=== PATIENT | male | born 1950 | race Caucasian/White ===

== ENCOUNTER 2025-07-21 17:47 | Observation (INO) | payer MEDICARE, SELFPAY ==
[2025-07-21] VITALS (11 sets, daily range): BP systolic 136–220; BP diastolic 71–115; PULSE 8–86; RESP 15–20; TEMP 36.6–37; O2SAT 92–96
--- OUTSIDE RECORDS SUMMARY | 2025-07-21 17:57 | XMS_ITS | Continuity of Care Document ---
Author Organization Yuridia White, [facility] ([facility]) Address [address] [place] [phone] Assessment No assessment recorded. Plan of Treatment Reminders Order Date Submit Date Provider Last Modified By Organization Details Last Modified Time Details Appointments None recorded. Lab urinalysis , dipstick 2024 025 [email or web address] [facility] ([facility]), [address] [place] [address], [phone], 18:45:25 Referral None recorded. Procedures None recorded. Surgeries None recorded. Imaging None recorded. Medication Orders None recorded. Patient TargetsNo targets recorded. Patient Instructions Encounter Date Encounter Id Patient Instructions Last Modified By Organization Details Last Modified Time 07/18/2025 [id number] Because none of these symptoms were newly happening today, and had been coming on for some time, I recommend establishing a PCP. He had a prior hand and knee injury to left side. Come fasting for blood work. [email or web address] Not available 07/18/2025 13:01:23 Reason for Referral None Reported. Results Created Date Observation Date Name Description Value Unit Range Abnormal Flag Note LastModifiedBy Organization Detail LastModifiedTime 07/18/2007/18/2025 urina lysis , dipst ick Leukocytes Negati ve Not Available [facility] ([facility]) [address] [place] [address], [phone], 07/18/2025 12:17:19 07/18/2007/18/2025 urina lysis , dipst ick Nitrite negati ve Not Available [facility] ([facility]) [address] [place], [address], 07/18/2025 12:17:19 07/18/20 25 07/18/2025 urina lysis , dipst ick Urobilinogen .2 Not Available [facility] ([facility]) [address] [place], [address], 07/18/2025 12:17:19 07/18/20 25 07/18/2025 urina lysis , dipst ick Protein Negati ve Not Available [facility] ([facility]) [address] [place], [address], 07/18/2025 12:17:19 07/18/20 25 07/18/2025 urina lysis , dipst ick pH 6.0 Not Available [facility] ([facility]) [address] [place], [address], 07/18/2025 12:17:19 07/18/20 25 07/18/2025 urina lysis , dipst ick Blood Negati ve Not Available [facility] ([facility]) [address] [place], [address], 07/18/2025 12:17:19 07/18/20 25 07/18/2025 urina lysis , dipst ick Specific [place] 1.010 Not Available [facility] ( [facility]) [address] [place], [address], 07/18/2025 12:17:19 07/18/20 25 07/18/2025 urina lysis , dipst ick Ketone Negati ve Not Available [facility] ([facility]) [address] [place], [address], 07/18/2025 12:17:19 07/18/20 25 07/18/2025 urina lysis , dipst ick Bilirubin Negati ve Not Available [facility] ([facility]) [address] [place], [address], 07/18/2025 12:17:19 07/18/2007/18/2025 urina lysis , dipst ick Glucose Negati ve Not Available [facility] ([facility]) [address] [place], [address], 07/18/2025 12:17:19 07/18/2007/18/2025 urina lysis , dipst ick Appearance Clear Not Available [facility] ([facility]) [address] [place], [address], 07/18/2025 12:17:19 07/18/2007/18/2025 urina lysis , dipst ick Color Yellow Not Available [facility] ([facility]) [address] [place], [address], 07/18/2025 12:17:19 Result Notes None recorded. Medical Equipment None Reported. Allergies No known drug allergies Medications Not known to be on any medication Vitals Date Recorded Body height Body mass index (BMI) Body weight Oxygen saturation Heart rate Body temperature Systolic And Diastolic Provider Name and Address Organization Details Last Updated DateTime 167.64 cm 31.2 kg/m2 24015.3 3 g 98 % 84 /min 98.4 [degF] 136/82 mm[Hg] Harleen Medina [facility] 12:14:12 Social History Question Answer Notes LastModified by Organizat ion Details LastModified Time Tobacco Smoking Status Never Smoker Harleen wheeler [facility] 07/18/2025 12:11:23 What Was The Date Of Your Most Recent Tobacco Screening? 07/18/2025 [email or web address] Information not available 07/18/2025 Sex: Unknown Functional Status None recorded. Mental Status None recorded. Family History Nothing Reported. Medical History No medical history recorded. Past Encounters Encounter ID Performer Location Encounter Start Date Encounter Closed Date Diagnosis/Indication Diagnosis SNOMED-CT Code Diagnosis ICD10 Code Diagnosis IMO Codes Diagnosis Note [id number] EARL UNDERWOOD APRN [facility] ([facility]) [address] [place] [address] 07/18/2025 12:04:19 07/18/2025 13:16:56 Dysuria 48235405 R30.0 27914 Nocturia 440833127 R35.1 23891108 History of hypertension 870323523 Z86.79 950881 Health Concerns Section Related Observation LastModified by Organization Detai ls LastModified Time None Recorded Concern Status LastModified by Organization Details LastModified Time None Recorded Payers Encounter Date Sequence Insurance Name Policy Number Policy Beckford Covered Member ID Beckford Member ID Guarantor Name 07/18/2025 1 [employer] (MEDICARE REPLACEMENT/ ADVANTAGE - PPO) [id number] Jerad Zuniga [id number] Jerad Zuniga Notes Date Note Type Note Provider Name and Address Organization Details Recorded Time 07/18/2025 text/html Walk inHaving trouble controlling bladder, getting to the restroom at times, slurred speech x4 days. Fell asleep 4 days ago & symptoms started.Has overactive bladder, has joint achiness, memory issues coming on for some time. balance is off EARL UNDERWOOD APRN [address] [place], [address], [facility] 07/18/2025 13:01:44
--- OUTSIDE RECORDS SUMMARY | 2025-07-21 17:57 | XMS_ITS | Data Portability ---
Author Organization [place] - [facility] Yuridia Khan [facility] Address [address] [place] [address] Assessment No assessment recorded. Plan of Treatment Reminders Order Date Submit Date Provider Last Modified By Organization Details Last Modified Time Details Appointments None recorded. Lab urinalysis , dipstick 2024 025 [email or web address] [facility] ([facility]), [address] [place] [address], [address], 18:45:25 Referral None recorded. Procedures None recorded. Surgeries None recorded. Imaging None recorded. Medication Orders None recorded. Patient TargetsNo targets recorded. Patient Instructions Encounter Date Encounter Id Patient Instructions Last Modified By Organization Details Last Modified Time 07/18/2025 [id number] Because none of these symptoms were newly [...] dipst ick Leukocytes Negati ve Not Available [facility] ([facility]) [address] [place], [address], 07/18/2025 12:17:19 07/18/2007/18/2025 urina lysis , dipst ick Nitrite negati ve Not Available [facility] ([facility]) [address] [place], [address], 07/18/2025 12:17:19 07/18/20 25 07/18/2025 urina lysis , dipst ick Urobilinogen .2 Not Available [facility] ([facility]) [address] [place], [address], 07/18/2025 12:17:19 07/18/20 25 07/18/2025 urina lysis , dipst ick Protein Negati ve Not Available [facility] ([facility]) [address] [place], [address], 07/18/2025 12:17:19 07/18/20 25 07/18/2025 urina lysis , dipst ick pH 6.0 Not Available [facility] ([facility]) [address] [place], [address], 07/18/2025 12:17:19 07/18/20 25 07/18/2025 urina lysis , dipst ick Blood Negati ve Not Available [facility] ([facility]) [address] [place], [address], 07/18/2025 12:17:19 07/18/20 25 07/18/2025 urina lysis , dipst ick Specific [place] 1.010 Not Available [facility] ( [facility]) [address] [place], [address], 07/18/2025 12:17:19 07/18/20 25 07/18/2025 urina lysis , dipst ick Ketone Negati ve Not Available [facility] ([facility]) [address] [place], [address], 07/18/2025 12:17:19 07/18/20 25 07/18/2025 urina lysis , dipst ick Bilirubin Negati ve Not Available [facility] ([facility]) [address] [place], [address], 07/18/2025 12:17:19 07/18/2007/18/2025 urina lysis , dipst ick Glucose Negati ve Not Available [facility] ([facility]) [address] [place], [address], 07/18/2025 12:17:19 07/18/2007/18/2025 urina lysis , dipst ick Appearance Clear Not Available [facility] ([facility]) [address] [place], [address], 07/18/2025 12:17:19 07/18/2007/18/2025 urina lysis , dipst ick Color Yellow Not Available [facility] ([facility]) [address] [place], [address], 07/18/2025 12:17:19 Result Notes None recorded. Medical Equipment None Reported. Allergies No known drug allergies Medications Not known to be on any medication Vitals Date Recorded Body height Body mass index (BMI) Body weight Oxygen saturation Heart rate Body temperature Systolic And Diastolic Provider Name and Address Organization Details Last Updated DateTime 167.64 cm 31.2 kg/m2 20413.3 3 g 98 % 84 /min 98.4 [degF] 136/82 mm[Hg] Harleen Adam [facility] 12:14:12 Social History Question Answer Notes LastModified by Organizat ion Details LastModified Time Tobacco Smoking Status Never Smoker Harleen Medinanatanael wheeler [facility] 07/18/2025 12:11:23 What Was The [...] ICD10 Code Diagnosis IMO Codes Diagnosis Note [id number] EARL UNDERWOOD APRN [facility] ([facility]) [address] [place] [address] 07/18/2025 12:04:19 07/18/2025 13:16:56 Dysuria 23127439 R30.0 41865 Nocturia 401761066 R35.1 71095128 History of hypertension 666979444 Z86.79 599377 Health Concerns Section Related Observation LastModified by Organization Detai ls LastModified Time None Recorded Concern Status LastModified by Organization Details LastModified Time None Recorded Advance Directives Directive None Recorded Payers Insurance Date Sequence Insurance Name Policy Number Policy Beckford Covered Member ID Beckford Member ID Guarantor Name 07/18/2025 1 [employer] (MEDICARE REPLACEMENT/ ADVANTAGE - PPO) [id number] Jerad Zuniga [id number] Jerad Zuniga Notes Date Note Type Note Provider Name and Address Organization Details Recorded Time 07/18/2025 text/html Walk inHaving trouble controlling bladder, getting to the restroom at times, slurred speech x4 days. Fell asleep 4 days ago & symptoms started.Has overactive bladder, has joint achiness, memory issues coming on for some time. balance is off EARL UNDERWOOD APRN [address] [place], [address], [facility] 07/18/2025 13:01:44
--- NOTE | 2025-07-21 18:01 | CTR_ITS ---
PROCEDURE INFORMATION: Exam: CT Head Without Contrast Exam date and time: 07/21/2025 6:17 PM Age: 74 years old Clinical indication: Syncope and collapse; Right sided facial droop, weakness and slurred speech since Friday; Additional info: R sided weakness TECHNIQUE: Imaging protocol: Computed tomography of the head without contrast. Radiation optimization: All CT scans at this facility use at least one of these dose optimization techniques: automated exposure control; mA and/or kV adjustment per patient size (includes targeted exams where dose is matched to clinical indication); or iterative reconstruction. COMPARISON: No relevant prior studies available. RADIATION DOSE METRICS: Total DLP (mGy-cm): 1046.68 FINDINGS: Brain: Mild atrophic change. No intracranial hemorrhage or hematoma is seen. No mass effect or shift of midline structures identified. No findings to indicate territorial or large vessel ischemic infarct. Suggs-white matter differentiation appears unremarkable. Cerebral ventricles: No ventriculomegaly. Paranasal sinuses: Visualized sinuses are unremarkable. No fluid levels. Mastoid air cells: Visualized mastoid air cells are well aerated. Bones: Bone windows of the skull show no acute abnormality. Soft tissues: Unremarkable. CT/CT head wo con* [id number] IMPRESSION: No acute intracranial abnormality.
--- NOTE | 2025-07-21 18:01 | CTR_ITS ---
PROCEDURE INFORMATION: Exam: CTA Head With Contrast, Arteriography Exam date and time: 07/21/2025 6:20 PM Age: 74 years old Clinical indication: Syncope and collapse; Right sided facial droop, weakness and slurred speech since Friday; Additional info: R sided weakness TECHNIQUE: Imaging protocol: Computed tomographic angiography of the head with contrast. Exam focused on the arteries. 3D rendering (Not supervised by radiologist): MIP and/or 3D reconstructed images were created by the technologist. Radiation optimization: All CT scans at this facility use at least one of these dose optimization techniques: automated exposure control; mA and/or kV adjustment per patient size (includes targeted exams where dose is matched to clinical indication); or iterative reconstruction. Contrast material: OMNIPAQUE 350; Contrast volume: 100 ml; Contrast route: INTRAVENOUS (IV); COMPARISON: CT head wo con* [id number] 07/21/2025 6:17 PM RADIATION DOSE METRICS: Total DLP (mGy-cm): 459.04 FINDINGS: ANTERIOR CIRCULATION: Right internal carotid artery: Intracranial segment is patent with no significant stenosis. No aneurysm. Mild calcification cavernous segment. Right middle cerebral artery: No occlusion or significant stenosis. No aneurysm. Right anterior cerebral artery: No occlusion or significant stenosis. No aneurysm. Left internal carotid artery: Intracranial segment is patent with no significant stenosis. No aneurysm. Mild calcification cavernous segment. Left middle cerebral artery: No occlusion or significant stenosis. No aneurysm. Left anterior cerebral artery: No occlusion or significant stenosis. No aneurysm. POSTERIOR CIRCULATION: Right vertebral artery: No occlusion or significant stenosis. No aneurysm. Left vertebral artery: No occlusion or significant stenosis. No aneurysm. Basilar artery: No occlusion or significant stenosis. No aneurysm. Right posterior cerebral artery: No occlusion or significant stenosis. No aneurysm. Left posterior cerebral artery: No occlusion or significant stenosis. No aneurysm. Brain: No definite mass, mass effect, or midline shift. Cerebral ventricles: No ventriculomegaly. Bones/joints: Unremarkable. Soft tissues: Unremarkable. PROCEDURE INFORMATION: Exam: CTA Neck With Contrast Exam date and time: 07/21/2025 6:20 PM Age: 74 years old Clinical indication: Syncope and collapse; Right sided facial droop, weakness and slurred speech since Friday; Additional info: R sided weakness TECHNIQUE: Imaging protocol: Computed tomographic angiography of the neck with contrast. Exam focused on the cervical segments of the vasculature. 3D rendering (Not supervised by radiologist): MIP and/or 3D reconstructed images were created by the technologist. Radiation optimization: All CT scans at this facility use at least one of these dose optimization techniques: automated exposure control; mA and/or kV adjustment per patient size (includes targeted exams where dose is matched to clinical indication); or iterative reconstruction. Contrast material: OMNIPAQUE 350; Contrast volume: 100 ml; Contrast route: INTRAVENOUS (IV); COMPARISON: CT head wo con* [id number] 07/21/2025 6:17 PM RADIATION DOSE METRICS: Total DLP (mGy-cm): 459.04 FINDINGS: Right common carotid artery: Mild plaque carotid bifurcation. No significant stenosis. No dissection or occlusion. Right internal carotid artery: Mild less than 50% stenosis of the proximal segment. No dissection or occlusion. Mildly tortuous distal aspect. Right external carotid artery: No occlusion or stenosis of the origin. Left common carotid artery: Small amount of plaque carotid bifurcation. No significant stenosis. No dissection or occlusion. Left internal carotid artery: No stenosis of the extracranial segment. No dissection or occlusion. Mildly tortuous distal aspect. Left external carotid artery: No occlusion or stenosis of the origin. Right vertebral artery: No stenosis. No dissection or occlusion. Mild tortuosity proximal aspect. Left vertebral artery: No stenosis. No dissection or occlusion. Mild tortuosity proximal aspect. Soft tissues: Unremarkable. Bones/joints: Cervical spondylotic change. CT/CT angio headneck* [id number] IMPRESSION: No large vessel stenosis or occlusion. IMPRESSION: Mild less than 50% stenosis of the proximal right internal carotid artery at the bifurcation. No significant stenosis or occlusion otherwise. REFERENCES: NASCET CRITERIA. The degree of stenosis in the cervical segment of the internal carotid artery is based on NASCET criteria. Normal is no stenosis. Mild is less than 50% stenosis. Moderate is 50-69% stenosis. Severe is 70% to 99% stenosis. Total occlusion is no detectable patent lumen.
--- NOTE | 2025-07-21 18:03 | ECG_ITS ---
[employer] Test Date: 2025-07-21 Pat Name: Jerad Zuniga Department: Room: Gender: Male Electrician Second: : 1950 Requested By: Mauro Pierce Order Number: [id number] Reading MD: GILMA BARRIENTOS Measurements Intervals [place] Rate: 96 P: 37 VT: 192 QRS: -16 QRSD: 102 T: 36 QT: 345 QTc: 437 Interpretive Statements SINUS RHYTHM WITH FREQUENT VENTRICULAR PREMATURE COMPLEXES POSSIBLE RIGHT VENTRICULAR CONDUCTION DELAY [RSR (QR) IN V1/V2] ABNORMAL RHYTHM ECG No previous ECG available for comparison Electronically Signed On 07-24-2025 23:09:14 [employer] by GILMA BARRIENTOS [email or web address]
[2025-07-21 18:28] LABS: Hematocrit 51.2 % (37-53); Hemoglobin 18.00 g/dL (11.27-16.99); Mean Corpuscular HGB Conc 35.2 g/dL (30-55); Mean Corpuscular Hemoglobin 31.1 pg (27-33); Mean Corpuscular Volume 88.4 fl (82-101); Nucleated Red Blood Cells % 0 %; Platelet Count 205 10^3/cmm (157-399); Red Blood Count 5.79 10^6/uL (3.85-5.65); White Blood Count 8.22 10^3/uL (3.29-11.43)
[2025-07-21] MEDS: iohexol 350 mg/mL 500 mL Btl (per mL) IV (18:32)
[2025-07-21] MEDS: labetalol 5 mg/mL SDV 20mL 20 MG IVP (18:41)
[2025-07-21 19:07] LABS: INR 0.91 (0.8-1.2); Prothrombin Time 12.90 SECONDS (12.1-14.9)
[2025-07-21 19:08] LABS: Partial Thromboplastin Time 27.1 SECONDS (23.9-36.7)
--- NOTE | 2025-07-21 19:14 | ED_ITS ---
HPI - Weakness 2 General: Chief complaint: ER Hold Stated complaint: urgent care sent stroke symptoms worse Time Seen by Provider: 07/21/25 18:00 History of Present Illness: This patient presents with a 5-day history of right-sided weakness and speech difficulties that began on Friday. The patient reports experiencing slurred speech and occasional difficulty finding words. Symptoms appear to be progressive, with the patient noting that today's presentation is worse than yesterday. The patient denies any prior history of stroke. There is no associated pain, headache, or chest discomfort. The patient has a remote history of hypertension but discontinued antihypertensive medications and medical follow-up approximately 15 years ago. Related Data Allergies Allergy/AdvReac Type Severity Reaction Status Date / Time oxycodone Allergy ADR-Vomitin Verified 07/21/25 17:57 g Physical Exam 2 Const: COMMON NORMALS: no acute distress GENERAL APPEARANCE: cooperative; not ill appearing and not frail appearing HENMT: COMMON NORMALS: normocephalic, atraumatic and Normal external nose present HEAD & SCALP: normocephalic and atraumatic FACE & SINUS: normal facial exam and face symmetric NOSE: Normal external nose present Eye: COMMON NORMALS: Equal, round and reactive pupils present and EOMs intact bilaterally PUPIL: Yes Equal, round and reactive pupils present Neck/C-Spine: GENERAL: Yes trachea midline Chest: CHEST: Yes Symmetrical chest wall rise Resp: COMMON NORMALS: normal respiratory effort, No retractions, No use of accessory muscles and clear to auscultation bilaterally AUSCULTATION: clear to auscultation bilaterally Cardio: COMMON NORMALS: regular rate and regular rhythm RATE: regular rate RHYTHM: regular rhythm GI: COMMON NORMALS: Normal to inspection, nondistended, normoactive bowel sounds present Extremity: COMMON NORMALS: no pedal edema Neuro: LELE COMA SCALE: document GCS findings [place] coma scale eye opening: Spontaneous [place] coma scale verbal response: Orientated [place] coma scale motor response: Obey commands [place] coma scale total score: 15 S ENSORY EXAM: Yes extremities (intact) Psych: COMMON NORMALS: speech normal SPEECH: Yes normal speech Skin: COMMON NORMALS: no rashes or lesions noted GENERAL SKIN EXAM: no rashes or lesions noted Course 2 Vital Signs: Vital signs: Vital Signs Temperature 98.6 F 07/21/25 19:26 Pulse Rate 84 07/21/25 22:27 Respiratory Rate 16 07/21/25 22:27 Blood Pressure 153/89 07/21/25 22:27 Pulse Oximetry 94 07/21/25 22:27 Oxygen Delivery Me thod Room Air 07/21/25 22: MDM - Weakness Medical Decision Making The patient's systolic blood pressures up to 260 on initial presentation. He is asymptomatic from this save his neurological findings. His NIH is 2. He is 5 days out from onset. He is not a candidate for any intervention such as thrombectomy, or thrombolysis. His CT shows no acute abnormality. No hemorrhage. No large territorial infarct. He was given labetalol and Vasotec. Current blood pressure 196/108. Will allow permissive hypertension for now. Hemoglobin is 18. Creatinine is 1.2. Other laboratory findings not terribly remarkable. Blood pressure is down to 180/100. He will be observed. Hospitalist is aware and will see the patient. He will get 10 mg of oral amlodipine Lab Data 07/21/25 18:17 07/21/25 18:[address] 07/21/25 18:01 IMPRESSION: No acute intracranial abnormality. Head/Neck CTA 07/21/25 18:01 IMPRESSION: No large vessel stenosis or occlusion. IMPRESSION: Mild less than 50% stenosis of the proximal right internal carotid artery at the bifurcation. No significant stenosis or occlusion otherwise. REFERENCES: NASCET CRITERIA. The degree of stenosis in the cervical segment of the internal carotid artery is based on NASCET criteria. Normal is no stenosis. Mild is less than 50% stenosis. Moderate is 50-69% stenosis. Severe is 70% to 99% stenosis. Total occlusion is no detectable patent lumen. Laboratory Results WBC 8.22 10^3/uL (3.29-11.43) 07/21/25 18:17 RBC 5.79 10^6/uL (3.85-5.65) H 07/21/25 18:17 Hgb 18.00 g/dL (11.27-16.99) H 07/21/25 18:17 Hct 51.2 % (37-53) 07/21/25 18:17 MCV 88.4 fl (82-101) 07/21/25 18:17 MCH 31.1 pg (27-33) 07/21/25 18:17 MCHC 35.2 g/dL (30-55) 07/21/25 18:17 RDW 12.6 % (12.1-15.1) 07/21/25 18:17 Plt Count 205 10^3/cmm (157-399) 07/21/25 18:17 MPV 10.8 fL (7.4-10.4) H 07/21/25 18:17 Neut % (Auto) 63.5 % 07/21/25 18:17 Lymph % (Auto) 22.7 % 07/21/25 18:17 Stephens % (Auto) 10.6 % 07/21/25 18:17 Eos % (Auto) 1.9 % 07/21/25 18:17 Baso % (Auto) 0.4 % 07/21/25 18:17 Neut # (Auto) 5.22 10^3/uL (1.8-7.7) 07/21/25 18:17 Lymph # (Auto) 1.9 10^3/uL (0.8-4.8) 07/21/25 18:17 Stephens # (Auto) 0.9 10^3/uL (0.2-0.9) 07/21/25 18:17 Eos # (Auto) 0.2 10^3/uL (0.0-0.8) 07/21/25 18:17 Baso # (Auto) 0.0 10^3/uL (0.0-0.1) 07/21/25 18:17 Nucleated RBC % (auto) 0 % 07/21/25 18:17 Nucleated RBCs # 0.0 /100WBC 07/21/25 18:17 PT 12.90 SECONDS (12.1-14.9) 07/21/25 18:45 INR 0.91 (0.8-1.2) 07/21/25 18:45 APTT 27.1 SECONDS (23.9-36.7) 07/21/25 18:45 Sodium 135 mmol/L (136-145) L 07/21/25 18:45 Potassium 3.8 mmol/L (3.5-5.1) 07/21/25 18:45 Chloride 100 mmol/L (98-107) 07/21/25 18:45 Carbon Dioxide 23 mmol/L (22-29) 07/21/25 18:45 Anion Gap 15.8 (5-19) 07/21/25 18:45 BUN 19 mg/dL (8-23) 07/21/25 18:45 Creatinine 1.2 mg/dL (0.7-1.2) 07/21/25 18:45 GFR Calculation Not Reportable 07/21/25 18:45 Glucose 120 mg/dL (65-115) H 07/21/25 18:45 Calculated Osmolality 283 mOsm/kg (285-295) L 07/21/25 18:45 Calcium 8.7 mg/dL (8.5-10.5) 07/21/25 18:45 Magnesium 2.0 mg/dL (1.7-2.3) 07/21/25 18:45 Total Bilirubin 0.3 mg/dL (0.15-1.2) 07/21/25 18:45 AST 28 U/L (0-40) 07/21/25 18:45 ALT 26 U/L (0-41) 07/21/25 18:45 Alkaline Phosphatase 123 U/L (40-130) 07/21/25 18:45 Troponin T Baseline 17 ng/L (0-15) H 07/21/25 18:45 Troponin T 60 Minute 16.98 ng/L (0-15) H 07/21/25 19:36 Delta Troponin T -0.02 ABS# (0-10) L 07/21/25 19:36 Total Protein 6.4 g/dL (6.6-8.7) L 07/21/25 18:45 Albumin 3.8 g/dL (3.5-5.2) 07/21/25 18:45 Globulin 2.6 g/dL (1.3-4.6) 07/21/25 18:45 All radiology interpretation(s) finalized by discharge EKG Data EKG 1: Interpretation: EKG timed 1812 read 1814 shows sinus rhythm with frequent PVCs. Rate 100. RI 192. QTc 399. No ST wave changes. [place] normal. Discharge Plan Discharge Patient Disposition: Placed in Observation Admit Provider: Tirso Pereira Clinical Impression: Hypertensive emergency, Acute CVA (cerebrovascular accident) Coding Level of Care Code ED Wire Sawyer for Chg Fwd NIH stroke score NIHSS Level Of Consciousness - 1a: 0 Level Of Consciousness Questions - 1b: Both Correct Level Of Consciousness Commands - 1c: Both Correct Best Gaze - 2: Normal Visual Clement - 3: No Visual Loss Facial Palsy - 4: Minor Paralysis Motor Arm Right - 5: No Drift Motor Arm Left - 5: No Drift Motor Leg Right - 6: No Drift Motor Leg Left - 6: No Drift Limb Ataxia - 7: Absent Sensory - 8: Normal Best Language - 9: No Aphasia Dysarthia - 10: Mild/Moderate Dysarthia Extinction And Inattention - 11: 0 Score Total Score: 2
[2025-07-21 19:15] LABS: Alanine Aminotransferase 26 U/L (0-41); Albumin Level 3.8 g/dL (3.5-5.2); Alkaline Phosphatase 123 U/L (40-130); Anion Gap 15.8 (5-19); Aspartate Amino Transferase 28 U/L (0-40); Blood Urea Nitrogen 19 mg/dL (8-23); Calcium 8.7 mg/dL (8.5-10.5); Carbon Dioxide 23 mmol/L (22-29); Chloride 100 mmol/L (98-107); Globulin 2.6 g/dL (1.3-4.6); Glucose 120 mg/dL (65-115); Magnesium 2.0 mg/dL (1.7-2.3); Osmolality Calculated 283 mOsm/kg (285-295); Potassium 3.8 mmol/L (3.5-5.1); Sodium 135 mmol/L (136-145); Total Protein 6.4 g/dL (6.6-8.7)
[2025-07-21 19:30] LABS: Troponin(5th) Baseline 17 ng/L (0-15)
--- NOTE | 2025-07-21 20:14 | ECG_ITS ---
[facility] Test Date: 2025-07-21 Pat Name: Jerad Zuniga Department: Room: EDIP Gender: Male [employer] Hr[employer] Developer: : 1950 Requested By: Mauro Pierce Order Number: [id number] Reading MD: GILMA BARRIENTOS Measurements Intervals [place] Rate: 84 P: 40 [place]: 235 QRS: -20 QRSD: 94 T: 10 QT: 356 QTc: 422 Interpretive Statements SINUS RHYTHM WITH FIRST DEGREE AV BLOCK WITH OCCASIONAL VENTRICULAR PREMATURE COMPLEXES POSSIBLE RIGHT VENTRICULAR CONDUCTION DELAY [RSR (QR) IN V1/V2] Compared to ECG 07/21/2025 18:13:40 First degree AV block now present Electronically Signed On 07-24-2025 23:25:16 APRON OPERATOR by GILMA BARRIENTOS [email or web address]
--- NOTE | 2025-07-21 20:46 | PM.HP ---
Providers/Chief Complaint Admitting Physician: Tirso Pereira MD Chief Complaint: urgent care sent stroke symptoms worse History of Present Illness Jerad Zuniga is a 74 year old male With a history significant for hypertension, who presents with complaints of right sided weakness. He states that the right-sided weakness began at approximately 1 PM on Friday after taking a nap. Prior to this, he was in his usual state of health. He tells me he felt unstable on his feet and experienced slurred speech at the time. He also mentions he had right sided weakness in his arms and legs. He also felt that he had swallowing issues. He did not seek medical attention at the time but did wait until the following day to go to the walk-in clinic. He did not see a clinician at the time. He then went home and on the day of presentation, he felt that his symptoms had worsened and so his son delivered him to our ED for further evaluation management. He denies any complaints of racing heart or palpitations. He says he has warm but denies any fevers. No complaints of new pain. He does mention he has some degree of constipation which is new. Medications/Allergies Allergies Allergy/AdvReac Type Severity Reaction Status Date / Time oxycodone Allergy ADR-Vomitin Verified 07/21/25 17:57 g Vitals/I&O/Wt Last Vital Signs Temp 98.6 F 07/21/25 19:26 Pulse 82 07/21/25 19:26 Resp 15 07/21/25 19:26 BP 196/108 07/21/25 19:26 Pulse Ox 93 07/21/25 19:26 O2 Del Method Room Air 07/21/25 19:26 07/21/25 07/21/25 07/21/25 06:59 14:59 22:59 Intake Total 0 / 0 Balance 0 / 0 Weight last 48 hrs Weight 87.09 kg Physical Exam Const: COMMON NORMALS: no acute distress and patient oriented x3 Resp: COMMON NORMALS: normal respiratory effort, No use of accessory muscles and clear to auscultation bilaterally Cardio: COMMON NORMALS: no JVD, regular rate, regular rhythm, S1 normal heart sound present, S2 normal heart sound present, No gallops present (Cardio), No clicks present (Cardio), No murmurs present (Cardio) and No rub (Cardio) GI: COMMON NORMALS: Normal to inspection, nondistended, normoactive bowel sounds present, Soft to palpation and non-tender Extremity: OTHER: No overt edema Neuro: OTHER: Cranial nerves II through XII grossly intact with the exception of right-sided facial droop. Loss of the right nasolabial fold is appreciated. Diminished coordination with [id number] testing on the right side. 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 Sensation intact throughout Skin: OTHER: No overt lesions Data 07/21/25 18:17 07/21/25 18:45 A&P Assessment and plan 1. Acute CVA (cerebrovascular accident): - Will admit for observation - Keep on telemetry monitoring - Obtain echocardiogram - Check labs: Lipid panel, A1c -Noted troponin elevation of 17, likely due to significant hypertension - May have diet if passes swallow screen - PT/OT consults - ASA 81 mg and Plavix 70 mg for 21 days - Start amlodipine, 10 mg daily. Will need further titration as an outpatient or inpatient if he remains significantly hypertensive - Defer to daytime attending with regards to neurology consult and further brain imaging. 2. Hypertensive emergency: - 10 mg amlodipine started - As needed labetalol for SBP greater than 180 PDMP PDMP Reviewed: Not Reviewed Attestations Medical Necessity Statement*: Patient will be less than 2 midnights of inpatient care for evaluation of CVA Coding Level of Care Code Acute Code for Chg Fwd Diagnoses Acute CVA (cerebrovascular accident) I63.9 Hypertensive emergency I16.1
--- NOTE | 2025-07-21 21:12 | PC.NURSE ---
report given Charisma PINEDA
--- NOTE | 2025-07-21 21:26 | PC.NURSE ---
took over pt care from Camila BRAVO at [id number].
--- NOTE | 2025-07-21 22:05 | USCV_ITS ---
Efrain Jerad Age: 74 Gender: M : 1950 Exam Date: 07/21/2025 23:03 Ordering Phys: Tirso Pereira MD Technologist: MUNA Exam Location: [facility] [place] Indication: acute stroke, RIGHT hemiparesis. History of HTN. BP: 220 / 107 HR: 75 Rhythm: Sinus arrythmia Technical Quality: Adequate MEASUREMENTS (Male / Female) Normal Values 2D ECHO LV Diastolic Diameter PLAX 4.2 cm 4.2 - 5.9 / 3.9 - 5.3 cm IVS Diastolic Thickness 1.6 cm 0.6 - 1.0 / 0.6 - 0.9 cm IVS Systolic Thickness 2.3 cm LVPW Diastolic Thickness 1.8 cm 0.6 - 1.0 / 0.6 - 0.9 cm LVPW Systolic Thickness 1.7 cm LVOT Diameter 2.3 cm LV Ejection Fraction 2D Teich 66.5 % LV Ejection Fraction MOD 4C 60.1 % LV Ejection Fraction MOD 2C 58.4 % LV Ejection Fraction 2C AL 57.9 % LA Diameter 3.6 cm Aorta at Sinotubular Diameter 3.0 cm IVC Diameter 1.2 cm M-MODE LA Ao Ratio MM 1.2 AV Cusp Separation MM 1.8 cm DOPPLER AV Peak Velocity 129.0 cm/s LVOT Peak Velocity 67.0 cm/s AV Area Cont Eq vti 2.2 cm squared AV Area Cont Eq pk 2.1 cm squared MV Peak Velocity 110.0 cm/s MV Area PHT 3.6 cm squared Mitral E to A Ratio 0.7 TR Peak Velocity 217.0 cm/s TR Peak Gradient 18.8 mmHg TV Peak E Velocity 54.0 cm/s PV Peak Velocity 99.0 cm/s FINDINGS Left Ventricle Normal left ventricular size and systolic function, EF of 55- 60%. No regional wall motion abnormalities. Grade 1 diastolic dysfunction Right Ventricle Normal in size and function Right Atrium Normal in size Left Atrium Normal in size IA Septum Grossly normal Mitral Valve Structurally normal valve. Trace mitral regurgitation. Aortic Valve Aortic valve is thickened. No significant stenosis Tricuspid Valve Mild tricuspid regurgitation. Pulmonary artery systolic pressure is normal Pulmonic Valve Not well visualized Pericardium Normal Aorta Normal in size IVC Appears to be normal CONCLUSIONS LV systolic function is normal with EF of 55-60% Grade 1 diastolic dysfunction Trace mitral regurgitation Mild tricuspid regurgitation No comparison studies are avaiilable. Lamont Mckee MD (Electronically Signed) Final Date: 22 July 2025 14:24 S
[2025-07-22] VITALS (13 sets, daily range): BP systolic 138–190; BP diastolic 68–106; PULSE 63–87; RESP 16–20; TEMP 36.4–36.7; O2SAT 93–95
[2025-07-22 00:28] LABS: Estmated Average Glucose 105; Hemoglobin A1C 5.3 % (4.0-6.0)
[2025-07-22 00:34] LABS: Cholesterol 188 mg/dL (0-200); HDL Cholesterol 35 mg/dL (60-100); Triglycerides 152 mg/dL (0-150)
[2025-07-22 01:08] LABS: Glucose Urine UA Negative (Normal); Nitrate Urine Negative (Negative)
[2025-07-22 01:13] LABS: Add Urine Microscopic? YES; Specific Gravity, Urine 1.072 (1.005-1.030)
--- NOTE | 2025-07-22 01:26 | ECG_ITS ---
[employer] Test Date: 2025-07-22 Pat Name: Jerad Zuniga Department: Room: EDIP Gender: Male [employer]: : 1950 Requested By: Mauro Pierce Order Number: [id number] Reading MD: GILMA BARRIENTOS Measurements Intervals [place] Rate: 75 P: 41 [place]: 229 QRS: -15 QRSD: 102 T: 29 QT: 380 QTc: 427 Interpretive Statements SINUS RHYTHM WITH FIRST DEGREE AV BLOCK WITH OCCASIONAL VENTRICULAR PREMATURE COMPLEXES Compared to ECG 07/21/2025 20:39:07 No significant changes Electronically Signed On 07-24-2025 23:24:19 ORACLE E BUSINESS DEVELOPER by GILMA BARRIENTOS [email or web address]
[2025-07-22 01:38] LABS: Troponin 5 6HR 16.95 ng/L (0-15)
[2025-07-22 01:39] LABS: Troponin 5 6HR Delta -0.05 ng/L (0-12)
[2025-07-22] MEDS: labetalol 5 mg/mL SDV 20mL 20 MG IVP (05:41)
[2025-07-22 15:29] LABS: Thyroid Stimulating Hormone 3.38 uIU/mL (0.27-4.20)
--- NOTE | 2025-07-22 22:30 | PM.DCS ---
Discharge Providers Date of Admission: 07/21/25 20:25 Date of Discharge: July 22, 2025 Attending Provider at Admission: Tirso Pereira MD Attending Provider at Discharge: Opal Alfred MD Diagnoses at Discharge Discharge Diagnosis 1. Acute CVA (cerebrovascular accident): 2. Hypertensive emergency: Reason for Visit Reason for Visit: urgent care sent stroke symptoms worse Brief History: As per the previous retrospective note review and admitting physician: Jerad Zuniga is a 74 year old male With a history significant for hypertension, who presents with complaints of right sided weakness. He states that the right-sided weakness began at approximately 1 PM on Friday after taking a nap. Prior to this, he was in his usual state of health. He tells me he felt unstable on his feet and experienced slurred speech at the time. He also mentions he had right sided weakness in his arms and legs. He also felt that he had swallowing issues. He did not seek medical attention at the time but did wait until the following day to go to the walk-in clinic. He did not see a clinician at the time. He then went home and on the day of presentation, he felt that his symptoms had worsened and so his son delivered him to our ED for further evaluation management. He denies any complaints of racing heart or palpitations. He says he has warm but denies any fevers. No complaints of new pain. He does mention he has some degree of constipation which is new. Hospital Course Hospital Course During patient hospital stay, he was admitted as a case of acute ischemia score, out of window, therefore was not eligible for thrombolytics or any thrombectomy.. His NIH score was 2. CT head did not show any acute abnormality or hemorrhage. Patient was having high blood pressure and was given labetalol and Vasotec in the ER.Troponins were negative. There was no hypoglycemic episode. Lipid panel showed hyperlipidemia. HbA1c was 5.3% echo showed EF of 55 to 60% with no regional wall motion abnormalities. EKG was also reviewed, and I personally reviewed there was only sinus rhythm with possible first-degree block. Patient was informed about the plan of care and OT PT recommendation followed for home OT PT. Cardiac event monitor was attached at the time of discharge with further follow-up with the cardiology. Antiplatelet therapy and statins were prescribed with neurology follow-up. The patient was informed that he can stay another day for management and better control of his vitals and can also be discharged today considering if he is compliant to his medication and take antihypertensives which the patient was not compliant. The patient agreed to go home and agreed to follow-up with his appropriate referrals and to be compliant with his medications. After establishing the stability of the patient and thoroughly counseling of all the risk and benefits of the management, patient was provided with medications that were were reconciled after confirmation and according to patient comorbidities and appropriate follow-ups and referrals were provided at the time of discharge. Patient condition has been discussed at length with the patient/family, I have independently reviewed the chart labs imaging/diagnostics/EKG. the goals of care and code status with the patient/family/NOK/legal congressional representative, and documented accordingly. The management has been done according to the current clinical condition with respect to patient goals of care and based on recommendations/guidelines. The patient/family has been informed about the current condition and further plan of care. Agreed with the plan of care and understood without any language barrier. Every effort was made to ensure accuracy of stencil cutter machine. Any obvious errors or omissions should be clarified with the author of the document. Physical Exam Narrative: General: Alert and oriented, lying comfortably without any distress HEENT: Normocephalic, atraumatic, grossly unremarkable exam Cardio: normal rate rhythm, normal S1-S2 without any murmurs, rubs, or gallops and JVD normal Respiratory: normal vascular breathing on auscultation without any wheezes, stridor, rhonchi GI: Abdomen soft, nontender, nondistended, normoactive bowel sounds present all 4 quadrants, Neuro: Gross right-sided motor weakness involving the right facial weakness, power of 4 x 5 on upper and lower extremities which is better than yesterday as per the patient. Normal coordination present. Behavior: Appropriate and cooperative Extremities: Adequate palpable pulses, no edema or cyanosis observed Skin: grossly unremarkable exam Discharge Data Studies Completed and Pending Completed Studies During Hospitalization Category Date Time Status CT angio headneck* [id number] Stat Cat Scan 07/21/25 18:[address] head wo con* [id number] Stat Cat Scan 07/21/25 18:01 Completed CV. echo complete* [id number] Routine Ultrasound 07/21/25 22:05 Completed Radiology Impressions Head CT 07/21/25 18:01 IMPRESSION: No acute intracranial abnormality. Head/Neck CTA 07/21/25 18:01 IMPRESSION: No large vessel stenosis or occlusion. IMPRESSION: Mild less than 50% stenosis of the proximal right internal carotid artery at the bifurcation. No significant stenosis or occlusion otherwise. REFERENCES: NASCET CRITERIA. The degree of stenosis in the cervical segment of the internal carotid artery is based on NASCET criteria. Normal is no stenosis. Mild is less than 50% stenosis. Moderate is 50-69% stenosis. Severe is 70% to 99% stenosis. Total occlusion is no detectable patent lumen. Laboratory Results WBC 8.22 10^3/uL (3.29-11.43) 07/21/25 18:17 RBC 5.79 10^6/uL (3.85-5.65) H 07/21/25 18:17 Hgb 18.00 g/dL (11.27-16.99) H 07/21/25 18:17 Hct 51.2 % (37-53) 07/21/25 18:17 MCV 88.4 fl (82-101) 07/21/25 18:17 MCH 31.1 pg (27-33) 07/21/25 18:17 MCHC 35.2 g/dL (30-55) 07/21/25 18:17 RDW 12.6 % (12.1-15.1) 07/21/25 18:17 Plt Count 205 10^3/cmm (157-399) 07/21/25 18:17 MPV 10.8 fL (7.4-10.4) H 07/21/25 18:17 Neut % (Auto) 63.5 % 07/21/25 18:17 Lymph % (Auto) 22.7 % 07/21/25 18:17 [place] % (Auto) 10.6 % 07/21/25 18:17 Eos % (Auto) 1.9 % 07/21/25 18:17 Baso % (Auto) 0.4 % 07/21/25 18:17 Neut # (Auto) 5.22 10^3/uL (1.8-7.7) 07/21/25 18:17 Lymph # (Auto) 1.9 10^3/uL (0.8-4.8) 07/21/25 18:17 [place] # (Auto) 0.9 10^3/uL (0.2-0.9) 07/21/25 18:17 Eos # (Auto) 0.2 10^3/uL (0.0-0.8) 07/21/25 18:17 Baso # (Auto) 0.0 10^3/uL (0.0-0.1) 07/21/25 18:17 Nucleated RBC % (auto) 0 % 07/21/25 18:17 Nucleated RBCs # 0.0 /100WBC 07/21/25 18:17 PT 12.90 SECONDS (12.1-14.9) 07/21/25 18:45 INR 0.91 (0.8-1.2) 07/21/25 18:45 APTT 27.1 SECONDS (23.9-36.7) 07/21/25 18:45 Sodium 135 mmol/L (136-145) L 07/21/25 18:45 Potassium 3.8 mmol/L (3.5-5.1) 07/21/25 18:45 Chloride 100 mmol/L (98-107) 07/21/25 18:45 Carbon Dioxide 23 mmol/L (22-29) 07/21/25 18:45 Anion Gap 15.8 (5-19) 07/21/25 18:45 BUN 19 mg/dL (8-23) 07/21/25 18:45 Creatinine 1.2 mg/dL (0.7-1.2) 07/21/25 18:45 GFR Calculation Not Reportable 07/21/25 18:45 Glucose 120 mg/dL (65-115) H 07/21/25 18:45 Estimat Average Glucose 105 07/21/25 18:45 Hemoglobin A1c 5.3 % (4.0-6.0) 07/21/25 18:45 Calculated Osmolality 283 mOsm/kg (285-295) L 07/21/25 18:45 Calcium 8.7 mg/dL (8.5-10.5) 07/21/25 18:45 Magnesium 2.0 mg/dL (1.7-2.3) 07/21/25 18:45 Total Bilirubin 0.3 mg/dL (0.15-1.2) 07/21/25 18:45 AST 28 U/L (0-40) 07/21/25 18:45 ALT 26 U/L (0-41) 07/21/25 18:45 Alkaline Phosphatase 123 U/L (40-130) 07/21/25 18:45 Troponin T Baseline 17 ng/L (0-15) H 07/21/25 18:45 Troponin T 60 Minute 16.98 ng/L (0-15) H 07/21/25 19:36 Delta Troponin T -0.02 ABS# (0-10) L 07/21/25 19:36 Troponin T Hi Sens 6Hr 16.95 ng/L (0-15) H 07/22/25 01:04 Troponin T Hi Sens 6Hr Delta -0.05 ng/L (0-12) L 07/22/25 01:04 Total Protein 6.4 g/dL (6.6-8.7) L 07/21/25 18:45 Albumin 3.8 g/dL (3.5-5.2) 07/21/25 18:45 Globulin 2.6 g/dL (1.3-4.6) 07/21/25 18:45 Triglycerides 152 mg/dL (0-150) H 07/21/25 18:45 Cholesterol 188 mg/dL (0-200) 07/21/25 18:45 LDL Cholesterol, Calc 123 mg/dL (50-129) 07/21/25 18:45 HDL Cholesterol 35 mg/dL (60-100) L 07/21/25 18:45 LDL/HDL Ratio 3.51 RATIO (0.00-3.22) H 07/21/25 18:45 Cholesterol/HDL Ratio 5.37 mg/dL (1.0-5.00) H 07/21/25 18:45 TSH 3.38 uIU/mL (0.27-4.20) 07/22/25 01:04 Urine Color Yellow (Yellow) 07/22/25 00:56 Urine Appearance Clear (CLEAR) 07/22/25 00:56 Urine pH 5.5 (5-7) 07/22/25 00:56 Ur Specific [place] 1.072 (1.005-1.030) H 07/22/25 00:56 Urine Protein Negative (Negative) 07/22/25 00:56 Urine Glucose (UA) Negative (Normal) 07/22/25 00:56 Urine Ketones Negative (Negative) 07/22/25 00:56 Urine Blood Negative (Negative) 07/22/25 00:56 Urine Nitrate Negative (Negative) 07/22/25 00:56 Urine Bilirubin Negative (Negative) 07/22/25 00:56 Urine Urobilinogen 1.0 mg/dL (Negative) 07/22/25 00:56 Ur Leukocyte Esterase Negative (Negative) 07/22/25 00:56 Urine RBC 0-2 /hpf (0-2) 07/22/25 00:56 Urine WBC 0-5 /hpf (0-5) 07/22/25 00:56 Ur Squamous Epith Cells 0-5 /hpf (0-5) 07/22/25 00:56 Amorphous Sediment Not Reportable 07/22/25 00:56 Urine Bacteria None seen /hpf (NONE) 07/22/25 00:56 Hyaline Casts 0-4 /lpf H 07/22/25 00:56 Vitals Last Vital Signs Temp 97.5 F L 07/22/25 15:41 Pulse 79 07/22/25 15:41 Resp 18 07/22/25 15:41 BP 175/83 07/22/25 15:41 Pulse Ox 95 07/22/25 15:41 O2 Del Method Room Air 07/22/25 15:41 O2 Flow Rate 2 07/22/25 04:00 Discharge Plan Discharge Patient Disposition: Home Condition: Stable Prescriptions: New atorvastatin 40 mg Tablet 40 mg PO BEDTIME 90 Days Qty: 90 0RF clopidogrel 75 mg Tablet 75 mg PO DAILY 20 Days Qty: 20 0RF aspirin 81 mg Tablet,Delayed Release (Dr/Ec) 81 mg PO DAILY 90 Days Qty: 90 0RF amlodipine 10 mg Tablet 10 mg PO DAILY 90 Days Qty: 90 0RF Discharge Order = DC NOW: Discharge Order (Routine); Ordered 07/22/25 Ordered By: Opal Alfred Other Ambulatory Orders: DME: Walker (Order) Location: None Selected Ordered By: Opal Alfred Physical Therapy Eval and Treat Outpatient (Order) Timeframe: 3 Days Facility: [facility] - Location: Physical Therapy Ordered By: Opal Alfred MR head orbits wo con 64510/40 (Routine) Timeframe: 1 Week Facility: [facility] - Location: Radiology Ordered By: Opal Alfred MCT/Event Monitor 30 Days (Routine) Timeframe: 1 Day Facility: [facility] - Location: Radiology Ordered By: Opal Alfred Referrals: [facility] [place]Outside] [facility] Outpatient Therapy [Outside] Referral Note: Someone will call you at home, to setup a time to come into the [facility], for outpt therpay. Emily Talley MD [Physician, Neurology] - 2 weeks Referral Note: s/p acute stroke for follow up We have notified your physician's clinic of the need for a follow-up appointment to be scheduled. If you have not heard from them within the next 2 business days, please call them directly. Lamont Mckee M.D [Physician, Cardiology] - 1 month Referral Note: cardiac event monitor reading s/p acute stroke We have notified your physician's clinic of the need for a follow-up appointment to be scheduled. If you have not heard from them within the next 2 business days, please call them directly. Discharge Diet: Advance as tolerated, Low Cholesterol and GI Soft Discharge Activity: Resume usual activity and Limit activity as instructed Patient Instructions: Aspiration, Amlodipine (By mouth), Ischemic Stroke (DC), Stroke Prevention (DC), Opioid Safety, Pain Management, Stroke Stoplight, Patient Portal & Aurelio Instructions Discharge Attestations Time Spent in Discharge Care*: greater than 30 min Specific Discharge Activities: educating patient, educating and/or supporting family/caregiver, discussing with pcp/other providers, discussing with rehabilitation case coordinator/social workers/dc planners, documenting/other paperwork and evaluating patient/reviewing data Status at Discharge: Cognitive status at discharge: cognitively intact, Behavioral status at discharge: cooperative, Functional status at discharge: other assisted ambulation, Overall status at discharge: patient is progressing back to baseline Quality Metrics Clinical Quality Measures [ Cerebrovascular Accident { Contraindication to Antithrombotic: Medical contraindication; Contraindication to Anticoagulation: None; anticoagulation prescribed; Contraindication to Statin: None; Statin prescribed; Contraindication to tPA: Treatment not indicated; Reason stroke education not provided: Stroke education provided to patient; Rehab services assessed: Activities of daily living assessment, Rehabilitation assessment, Physical therapy, Occupational therapy, Speech therapy, Stroke rehabilitation, Other; Reason rehab assessment not done: Rehab assessment done}] Coding Level of Care Code Acute Code for Chg Fwd Diagnoses Acute CVA (cerebrovascular accident) I63.9 Hypertensive emergency I16.1
== END 2025-07-22 15:45 | disposition home or self-care (01) ==
LOC: ER 20:21 → ER IP 20:25 → MEDSURG 07-22 05:47
PROVIDERS: Admitting Provider Family Medicine; Emergency Provider Emergency Medicine; Visit Provider Student in an Organized Health Care Education/Training Program
DX: I63.9 Cerebral infarction, unspecified (principal); R29.702 NIHSS score 2; I16.1 Hypertensive emergency
CPT/HCPCS: 36415; 70450; 70496; 70498; 80053; 80061; 81001; 83036; 83735; 84443; 84484; 85025; 85610; 85730; 92523; 92610; 93005; 93306; 96372; 97110; 97116; 97161; 97165; G0378; J1650; J3490; J9999

== ENCOUNTER 2025-07-24 16:55 | Emergency (ER) | payer MEDICARE, SELFPAY ==
[2025-07-24] VITALS (16 sets, daily range): BP systolic 140–218; BP diastolic 91–140; PULSE 111; TEMP 36.8; O2SAT 89–96; BMI 30.9
--- OUTSIDE RECORDS SUMMARY | 2025-07-24 17:07 | XMS_ITS | Data Portability ---
Author Organization ID - Buck Schmidt [facility] Yuridia Khan [facility] Address [address] [facility] [address] [place] [address] Assessment No assessment recorded. Plan of Treatment Reminders Order Date Submit Date Provider Last Modified By Organization Details Last Modified Time Details Appointments None recorded. Lab urinalysis , dipstick 2024 025 [email or web address] [facility] ([facility]), [address] [place] [address], [phone], 18:45:25 Referral None recorded. Procedures None recorded. Surgeries None recorded. Imaging None recorded. Medication Orders None recorded. Patient TargetsNo targets recorded. Patient Instructions Encounter Date Encounter Id Patient Instructions Last Modified By Organization Details Last Modified Time 07/18/2025 [id number] Because none of these symptoms were newly [...] dipst ick Leukocytes Negati ve Not Available [facility] ([facility]) [address] [place], [address], 07/18/2025 12:17:19 07/18/20 25 07/18/2025 urina lysis , dipst ick Nitrite negati ve Not Available [facility] ([facility]) [address] [place], [address], 07/18/2025 12:17:19 07/18/20 25 07/18/2025 urina lysis , dipst ick Urobilinogen .2 Not Available [facility] ([facility]) [address] [place], [address], 07/18/2025 12:17:19 07/18/20 25 07/18/2025 urina lysis , dipst ick Protein Negati ve Not Available [facility] ([facility]) [address] [place], [address], 07/18/2025 12:17:19 07/18/20 25 07/18/2025 urina lysis , dipst ick pH 6.0 Not Available [facility] ([facility]) [address] [place], [address], 07/18/2025 12:17:19 07/18/20 25 07/18/2025 urina lysis , dipst ick Blood Negati ve Not Available [facility] ([facility]) [address] [place], [address], 07/18/2025 12:17:19 07/18/20 25 07/18/2025 urina lysis , dipst ick Specific [place] 1.010 Not Available [facility] ( [facility]) [address] [place], [address], 07/18/2025 12:17:19 07/18/20 25 07/18/2025 urina lysis , dipst ick Ketone Negati ve Not Available [facility] ([facility]) [address] [place], [address], 07/18/2025 12:17:19 07/18/20 25 07/18/2025 urina lysis , dipst ick Bilirubin Negati ve Not Available [facility] ([facility]) [address] [place], [address], 07/18/2025 12:17:19 07/18/2007/18/2025 urina lysis , dipst ick Glucose Negati ve Not Available [facility] ([facility]) [address] [place], [address], 07/18/2025 12:17:19 07/18/2007/18/2025 urina lysis , dipst ick Appearance Clear Not Available [facility] ([facility]) [address] [place], [address], 07/18/2025 12:17:19 07/18/2007/18/2025 urina lysis , dipst ick Color Yellow Not Available [facility] ([facility]) [address] [place], [address], 07/18/2025 12:17:19 Result Notes None recorded. Medical Equipment None Reported. Allergies No known drug allergies Medications Not known to be on any medication Vitals Date Recorded Body height Body mass index (BMI) Body weight Oxygen saturation Heart rate Body temperature Systolic And Diastolic Provider Name and Address Organization Details Last Updated DateTime 167.64 cm 31.2 kg/m2 53056.3 3 g 98 % 84 /min 98.4 [degF] 136/82 mm[Hg] Harleen Adam [facility] 12:14:12 Social History Question Answer Notes LastModified by Organizat ion Details LastModified Time Tobacco Smoking Status Never Smoker Harleen Medinanatanael wheeler [facility] 07/18/2025 12:11:23 What Was The [...] ICD10 Code Diagnosis IMO Codes Diagnosis Note [id number] EARL UNDERWOOD APRN [facility] ([facility]) [address] [place] [address] 07/18/2025 12:04:19 07/18/2025 13:16:56 Dysuria 11572032 R30.0 66034 Nocturia 090184847 R35.1 [id number] History of hypertension 214253755 Z86.79 826773 Health Concerns Section Related Observation LastModified by Organization Detai ls LastModified Time None Recorded Concern Status LastModified by Organization Details LastModified Time None Recorded Advance Directives Directive None Recorded Payers Insurance Date Sequence Insurance Name Policy Number Policy Beckford Covered Member ID Beckford Member ID Guarantor Name 07/18/2025 1 [employer] (MEDICARE REPLACEMENT/ ADVANTAGE - PPO) [id number] Jerad Zuniga [id number] Jerad Zuniga Notes Date Note Type Note Provider Name and Address Organization Details Recorded Time 07/18/2025 text/html Walk inHaving trouble controlling bladder, getting to the restroom at times, slurred speech x4 days. Fell asleep 4 days ago & symptoms started.Has overactive bladder, has joint achiness, memory issues coming on for some time. balance is off EARL UNDERWOOD APRN [address] [place], [address], [facility]Re[facility] JerseyYuridia 07/18/2025 13:01:44
--- OUTSIDE RECORDS SUMMARY | 2025-07-24 17:07 | XMS_ITS | Continuity of Care Document ---
Author Organization Yuridia White, [facility] ([facility]) Address [address] [place] [address] Assessment No assessment recorded. Plan of Treatment Reminders Order Date Submit Date Provider Last Modified By Organization Details Last Modified Time Details Appointments None recorded. Lab urinalysis , dipstick 2024 025 [email or web address] [facility] ([facility]), [address] [place] [address], [phone], 18:45:25 Referral None recorded. Procedures None recorded. Surgeries None recorded. Imaging None recorded. Medication Orders None recorded. Patient TargetsNo targets recorded. Patient Instructions Encounter Date Encounter Id Patient Instructions Last Modified By Organization Details Last Modified Time 07/18/2025 [id number] Because none of these symptoms were newly [...] dipst ick Leukocytes Negati ve Not Available [facility] ([facility]) [address] [place] [address], [address], 07/18/2025 12:17:19 07/18/20 25 07/18/2025 urina lysis , dipst ick Nitrite negati ve Not Available [facility] ([facility]) [address] [place], [address], 07/18/2025 12:17:19 07/18/20 25 07/18/2025 urina lysis , dipst ick Urobilinogen .2 Not Available [facility] ([facility]) [address] [place], [address], 07/18/2025 12:17:19 07/18/20 25 07/18/2025 urina lysis , dipst ick Protein Negati ve Not Available [facility] ([facility]) [address] [place], [address], 07/18/2025 12:17:19 07/18/20 25 07/18/2025 urina lysis , dipst ick pH 6.0 Not Available [facility] ([facility]) [address] [place], [address], 07/18/2025 12:17:19 07/18/20 25 07/18/2025 urina lysis , dipst ick Blood Negati ve Not Available [facility] ([facility]) [address] [place], [address], 07/18/2025 12:17:19 07/18/20 25 07/18/2025 urina lysis , dipst ick Specific [place] 1.010 Not Available [facility] ( [facility]) [address] [place], [address], 07/18/2025 12:17:19 07/18/20 25 07/18/2025 urina lysis , dipst ick Ketone Negati ve Not Available [facility] ([facility]) [address] [place], [address], 07/18/2025 12:17:19 07/18/20 25 07/18/2025 urina lysis , dipst ick Bilirubin Negati ve Not Available [facility] ([facility]) [address] [place], [address], 07/18/2025 12:17:19 07/18/2007/18/2025 urina lysis , dipst ick Glucose Negati ve Not Available [facility] ([facility]) [address] [place], [address], 07/18/2025 12:17:19 07/18/2007/18/2025 urina lysis , dipst ick Appearance Clear Not Available [facility] ([facility]) [address] [place], [address], 07/18/2025 12:17:19 07/18/2007/18/2025 urina lysis , dipst ick Color Yellow Not Available [facility] ([facility]) [address] [place], [address], 07/18/2025 12:17:19 Result Notes None recorded. Medical Equipment None Reported. Allergies No known drug allergies Medications Not known to be on any medication Vitals Date Recorded Body height Body mass index (BMI) Body weight Oxygen saturation Heart rate Body temperature Systolic And Diastolic Provider Name and Address Organization Details Last Updated DateTime 167.64 cm 31.2 kg/m2 77864.3 3 g 98 % 84 /min 98.4 [degF] 136/82 mm[Hg] Harleen Medina [facility] 12:14:12 Social History Question Answer Notes LastModified by Organizat ion Details LastModified Time Tobacco Smoking Status Never Smoker Harleen wheeler [facility] 07/18/2025 12:11:23 What Was The Date Of Your Most Recent Tobacco Screening? 07/18/2025 [email or web address] Information not available 07/18/2025 Sex: Unknown Functional Status None recorded. Mental Status None recorded. Family History Nothing Reported. Medical History No medical history recorded. Past Encounters Encounter ID Performer Location Encounter Start Date Encounter Closed Date Diagnosis/Indication Diagnosis SNOMED-CT Code Diagnosis ICD10 Code Diagnosis IMO Codes Diagnosis Note [id number] EARL UNDERWOOD APRN [facility] ([facility]) [address] [place] [address] 07/18/2025 12:04:19 07/18/2025 13:16:56 Dysuria 09087046 R30.0 42859 Nocturia 086022228 R35.1 [id number] History of hypertension 342565434 Z86.79 962150 Health Concerns Section Related Observation LastModified by Organization Detai ls LastModified Time None Recorded Concern Status LastModified by Organization Details LastModified Time None Recorded Payers Encounter Date Sequence Insurance Name Policy Number Policy Beckford Covered Member ID Beckford Member ID Guarantor Name 07/18/2025 1 [employer] (MEDICARE REPLACEMENT/ ADVANTAGE - PPO) [id number] Jerad Zuniga [id number] Jerad Zuniga Notes Date Note Type Note Provider Name and Address Organization Details Recorded Time 07/18/2025 text/html Walk inHaving trouble controlling bladder, getting to the restroom at times, slurred speech x4 days. Fell asleep 4 days ago & symptoms started.Has overactive bladder, has joint achiness, memory issues coming on for some time. balance is off EARL UNDERWOOD APRN [address] [place], [address], FAWN AminS[facility] Hospitalek [facility] 07/18/2025 13:01:44
--- NOTE | 2025-07-24 18:16 | ED_ITS ---
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 Patient returns today for apparent right sided lower extremity swelling though he states he felt like the right side of his abdomen was swollen as well. He states that he noted this this afternoon but symptoms have now resolved. Patient denies any confusion, double vision, loss of vision, difficulty with swallowing, new speech deficit, dizziness/vertigo, new or worsening weakness (states that he feels right sided weakness has been improving and he now ambulates w/walker), new sensory deficit. Patient is not experiencing chest pain, shortness of breath, pain with respirations, hemoptysis, syncope, abdominal pain, nausea, vomiting. Patient states that he has been using the bathroom normally, has had a normal BM today, denies dysuria, hematuria or flank pain. He does not have a history of DVT/PE. Patient states that the swelling in the right lower extremity has resolved and he has no pain now. There are no skin changes. Of note, patient is quite hypertensive but discharged SBP was 175 and he states he took his amlodipine this morning around 8:00. Patient states that his blood pressure has varied between 130-150 systolic. Related Data Previous Rx's ?Medication ?Instructions ?Recorded amlodipine 10 mg tablet 10 mg PO DAILY 90 days #90 t abs 07/22/25 aspirin 81 mg tablet,delayed 81 mg PO DAILY 90 days #9 0 tabs 07/22/25 release atorvastatin 40 mg tablet 40 mg PO BEDTIME 90 days #90 tabs 07/22/25 clopidogrel 75 mg tablet 75 mg PO DAILY 20 days #20 t abs 07/22/25 lisinopril 20 mg tablet 20 mg PO DAILY #30 tabs 06/28 03/21 Allergies Allergy/AdvReac Type Severity Reaction Status Date / Time oxycodone Allergy ADR-Vomitin Verified 07/24/25 17:13 g Physical Exam 2 Narrative: EXAM NARRATIVE: VS reviewed. Patient is alert and oriented and readily answering questions appropriately. EOMI. PERRL. Mild R sided facial droop (ongoing since 07/21), speech is intelligible. Normal tongue protrusion, uvula is midline. There is mild RUE weakness, mild drift, not new. No apparent weakness in b/l LE. Able to perform FNF and heel to cannon. SpO2 is 96% on room air and lungs are clear bilaterally to auscultation, normal heart sounds. Abdomen is soft, nondistended nontender to palpation. There is no significant swelling/asymmetry to either LE. Extremities do not appear ischemic. No skin changes noted. Course 2 Vital Signs: Vital signs: Vital Signs Temperature 98.3 F 07/24/25 17:06 Pulse Rate 111 H 07/24/25 17:06 Blood Pressure 141/104 07/24/25 22:00 Pulse Oximetry 90 07/24/25 22:00 Oxygen Delivery Me thod Room Air 07/24/25 17:06 MDM - General Adult Medical Decision Making 74-year-old male w/cc of subjective RLE and R abd swelling, no pain, now resolved. Differential diagnosis includes, but is normocytic, ascites, hepatomegaly, hernia, DVT/PE, other. On exam, patient is quite hypertensive but does not appear to have any new neurologic deficits, denies chest pain, shortness of breath, change in UOP. Patient was evaluated with CBC, CMP, troponin, BNP, D-Dimer, EKG. patient has a normal white blood cell count. Patient has mild elevation in H/H, which may indicate hemoconcentration. Patient states he has not been drinking as much water as he normally drinks. Patient was given oral hydration with improvement in heart rate. Otherwise, he continues to have adequate kidney function, does not have any actionable electrolyte abnormalities, has a troponin that is only minimally elevated with a negative delta and no chest pain. There is no evidence of heart failure. Patient has a mildly elevated D-dimer, per YEAR's criteria does not require further eval for PE but US venous done: IMPRESSION: No evidence of deep vein thrombosis. Patient is appropriate for discharge and outpatient management at this time. Will add lisinopril to better help control patient's blood pressure. On reassessment, he is feeling well and does not have any current complaints. Patient was counseled on supportive care at home, given return precautions and discharged in stable condition with recommendation for outpatient follow-up with primary care nurse or doctor. Lab Data 07/24/25 19:01 07/24/25 19:01 Radiology Impressions Venous Duplex 07/24/25 20:12 IMPRESSION: No evidence of deep vein thrombosis. Laboratory Results WBC 9.90 10^3/uL (3.29-11.43) 07/24/25 19:01 RBC 6.00 10^6/uL (3.85-5.65) H 07/24/25 19:01 Hgb 18.30 g/dL (11.27-16.99) H 07/24/25 19:01 Hct 53.1 % (37-53) H 07/24/25 19:01 MCV 88.5 fl (82-101) 07/24/25 19: MCH 30.5 pg (27-33) 07/24/25 19:01 MCHC 34.5 g/dL (30-55) 07/24/25 19:01 RDW 12.4 % (12.1-15.1) 07/24/25 19: Plt Count 208 10^3/cmm (157-399) 07/24/25 19:01 MPV 10.7 fL (7.4-10.4) H 07/24/25 19:01 Neut % (Auto) 72.3 % 07/24/25 19: Lymph % (Auto) 16.1 % 07/24/25 19:01 [place] % (Auto) 9.5 % 07/24/25 19:01 Eos % (Auto) 1.3 % 07/24/25 19:01 Baso % (Auto) 0.3 % 07/24/25 19:01 Neut # (Auto) 7.16 10^3/uL (1.8-7.7) 07/24/25 19:01 Lymph # (Auto) 1.6 10^3/uL (0.8-4.8) 07/24/25 19:01 [place] # (Auto) 0.9 10^3/uL (0.2-0.9) 07/24/25 19:01 Eos # (Auto) 0.1 10^3/uL (0.0-0.8) 07/24/25 19:01 Baso # (Auto) 0.0 10^3/uL (0.0-0.1) 07/24/25 19:01 Nucleated RBC % (auto) 0 % 07/24/25 19:01 Nucleated RBCs # 0.0 /100WBC 07/24/25 19:01 D-Dimer 0.97 ug/mLFEU (0-0.59) H 07/24/25 19:01 Sodium 137 mmol/L (136-145) 07/24/25 19:01 Potassium 4.0 mmol/L (3.5-5.1) 07/24/25 19:01 Chloride 99 mmol/L (98-107) 07/24/25 19:01 Carbon Dioxide 24 mmol/L (22-29) 07/24/25 19:01 Anion Gap 18.0 (5-19) 07/24/25 19:01 BUN 23 mg/dL (8-23) 07/24/25 19:01 Creatinine 1.1 mg/dL (0.7-1.2) 07/24/25 19:01 GFR Calculation Not Reportable 07/24/25 19:01 Glucose 112 mg/dL (65-115) 07/24/25 19:01 Calculated Osmolality 288 mOsm/kg (285-295) 07/24/25 19:01 Calcium 9.8 mg/dL (8.5-10.5) 07/24/25 19:01 Total Bilirubin 0.6 mg/dL (0.15-1.2) 07/24/25 19:01 AST 36 U/L (0-40) 07/24/25 19:01 ALT 35 U/L (0-41) 07/24/25 19:01 Alkaline Phosphatase 136 U/L (40-130) H 07/24/25 19:01 Troponin T Baseline 16 ng/L (0-15) H 07/24/25 19:01 Troponin T 60 Minute 14.88 ng/L (0-15) 07/24/25 20:02 Delta Troponin T -1.12 ABS# (0-10) L 07/24/25 20:02 NT-Pro-B Natriuret Pep 82 pg/mL (0-125) 07/24/25 19:01 Total Protein 7.1 g/dL (6.6-8.7) 07/24/25 19:01 Albumin 4.7 g/dL (3.5-5.2) 07/24/25 19:01 Globulin 2.4 g/dL (1.3-4.6) 07/24/25 19:01 All radiology interpretation(s) finalized by discharge EKG Data EKG 1: Interpretation: Normal sinus rhythm with a heart rate of 91, normal axis, mild prolongation of QRS, normal QT/QTc, no STEMI or ischemic change. Computer generated interpretation: Venous Duplex 07/24/25 20:12 IMPRESSION: No evidence of deep vein thrombosis. Discharge Plan Discharge Patient Disposition: Home Clinical Impression: Right leg swelling Hypertension Qualifiers: Hypertension type: unspecified Qualified Code(s): I10 - Essential (primary) hypertension Condition: Stable Prescriptions: New lisinopril 20 mg tablet 20 mg PO DAILY Qty: 30 0RF No Action atorvastatin 40 mg Tablet 40 mg PO BEDTIME 90 Days Qty: 90 0RF clopidogrel 75 mg Tablet 75 mg PO DAILY 20 Days Qty: 20 0RF aspirin 81 mg Tablet,Delayed Release (Dr/Ec) 81 mg PO DAILY 90 Days Qty: 90 0RF amlodipine 10 mg Tablet 10 mg PO DAILY 90 Days Qty: 90 0RF Discharge Orders: Discharge ED (Routine); Ordered 07/24/25 Ordered By: Zuri Robertson Patient Instructions: Chronic Hypertension (DC), Opioid Safety, Pain Management, Patient Portal & Aurelio Instructions Activity Restrictions/Additional Instructions: Note that you have been prescribed additional medication to help control your blood pressure. Please take as prescribed. Continue to do a great job of monitoring your blood pressure at home. Please continue to monitor your condition closely at home. If your condition worsens or additional concerns arise, please return promptly to the emergency department for reassessment. Follow up with your primary care doctor in one week. Print Language: Vietnamese Coding Level of Care Code ED Refinery Operator for Ruslan Sanchez
--- NOTE | 2025-07-24 18:34 | ECG_ITS ---
[employer] Test Date: 2025-07-24 Pat Name: Jerad Zuniga Department: Room: Gender: Male Traveling Engineer: : 1950 Requested By: Zuri Robertson Order Number: [id number] Reading MD: GILMA BARRIENTOS Measurements Intervals [place] Rate: 91 P: 55 AL: 210 QRS: -2 QRSD: 109 T: 49 QT: 345 QTc: 425 Interpretive Statements SINUS RHYTHM WITH FIRST DEGREE AV BLOCK POSSIBLE LEFT ATRIAL ENLARGEMENT [-0.1mV P-WAVE IN V1/V2] Compared to ECG 07/22/2025 01:26:37 Ventricular premature complex(es) no longer present Electronically Signed On 07-24-2025 22:50:09 MIGRANT LEADER by GILMA BARRIENTOS [email or web address]
[2025-07-24 19:07] LABS: Hematocrit 53.1 % (37-53); Hemoglobin 18.30 g/dL (11.27-16.99); Mean Corpuscular HGB Conc 34.5 g/dL (30-55); Mean Corpuscular Hemoglobin 30.5 pg (27-33); Mean Corpuscular Volume 88.5 fl (82-101); Nucleated Red Blood Cells % 0 %; Platelet Count 208 10^3/cmm (157-399); Red Blood Count 6.00 10^6/uL (3.85-5.65); White Blood Count 9.90 10^3/uL (3.29-11.43)
[2025-07-24 19:31] LABS: Alanine Aminotransferase 35 U/L (0-41); Albumin Level 4.7 g/dL (3.5-5.2); Alkaline Phosphatase 136 U/L (40-130); Anion Gap 18.0 (5-19); Aspartate Amino Transferase 36 U/L (0-40); Blood Urea Nitrogen 23 mg/dL (8-23); Calcium 9.8 mg/dL (8.5-10.5); Carbon Dioxide 24 mmol/L (22-29); Chloride 99 mmol/L (98-107); Globulin 2.4 g/dL (1.3-4.6); Glucose 112 mg/dL (65-115); Osmolality Calculated 288 mOsm/kg (285-295); Potassium 4.0 mmol/L (3.5-5.1); Sodium 137 mmol/L (136-145); Total Protein 7.1 g/dL (6.6-8.7)
--- NOTE | 2025-07-24 19:35 | ECG_ITS ---
[facility]25-[facility]-24 Pat Name: Jerad Zuniga Department: Room: Gender: Male Visual Effects Artist: : 1950 Requested By: Zuri Robertson Order Number: [id number] Reading MD: GILMA BARRIENTOS Measurements Intervals [place] Rate: 86 P: 47 DE: 211 QRS: -23 QRSD: 99 T: 31 QT: 345 QTc: 414 Interpretive Statements SINUS RHYTHM WITH FIRST DEGREE AV BLOCK BORDERLINE LEFT AXIS DEVIATION [QRS AXIS < -20] Compared to ECG 07/24/2025 18:49:03 No significant changes Electronically Signed On 07-24-2025 23:17:07 VISUAL MERCHANDISING DIRECTOR by GILMA BARRIENTOS [email or web address]
[2025-07-24 19:45] LABS: Troponin(5th) Baseline 16 ng/L (0-15)
[2025-07-24 20:05] LABS: NT Pro B Type Natriuretic Pept 82 pg/mL (0-125)
--- NOTE | 2025-07-24 20:12 | USR_ITS ---
PROCEDURE INFORMATION: Exam: US Duplex Right Lower Extremity Veins, Limited Exam date and time: 07/24/2025 9:58 PM Age: 74 years old Clinical indication: Lower extremity swelling TECHNIQUE: Imaging protocol: Real-time duplex ultrasound of the right extremity with 2-D morris scale, color Doppler flow and spectral waveform analysis including responses to compression and other maneuvers (when performed) with image documentation. Limited exam was focused on the right lower extremity veins. COMPARISON: No relevant prior studies available. FINDINGS: Right deep veins: Unremarkable. The common femoral, femoral, proximal profunda femoral and popliteal veins are patent without thrombus. Normal Doppler waveforms. Normal compressibility and/or augmentation response. Superficial veins: Greater saphenous vein at the saphenofemoral junction is patent without thrombus. Soft tissues: Unremarkable. US/[place] [id number] IMPRESSION: No evidence of deep vein thrombosis.
== END 2025-07-24 22:48 | disposition home or self-care (01) ==
PROVIDERS: Emergency Provider Emergency Medicine
DX: R60.0 Localized edema (principal); I10 Essential (primary) hypertension; Z79.82 Long term (current) use of aspirin; Z79.02 Long term (current) use of antithrombotics/antiplatelets
CPT/HCPCS: 36415; 80053; 83880; 84484; 85025; 85378; 93005; 93971; 99284; J9999

== ENCOUNTER 2025-07-27 06:47 | Outpatient (CLI) | payer MEDICARE, SELFPAY ==
--- NOTE | 2025-07-27 07:15 | MR_ITS ---
WS: [id number] MRI BRAIN WITH ORBITS, WITHOUT CONTRAST HISTORY: Right-sided weakness. Limited motion for 1 week. COMPARISON: CT 07/21/2025 TECHNIQUE: Multiplanar imaging performed through the brain without contrast. Focal acute lacunar infarct involving the LEFT compa. This infarct is just to the LEFT of midline. There is an additional smaller area of increased T2 signal in the more lateral LEFT compa which is negative on diffusion imaging. On the FLAIR sequence there is a central area of decreased signal surrounded by increased signal involving the smaller lesion which may be a prior infarct. No additional acute infarct. Mild cerebral and cerebellar atrophy. Mild small vessel changes. Tiny focus of hemosiderin in the posterior RIGHT occipital lobe. Ventricles and extra-axial spaces are normal. Clivus and pituitary gland are normal. Visualized posterior fossa and brainstem are also normal. No signal changes in the arteries or dural venous sinuses. Paranasal sinuses: Well aerated with no significant disease. Mastoid air cells: Normal. Calvarium and scalp: Normal. MR/MR head orbits wo con [id number] IMPRESSION: 1. Acute lacunar infarct in the LEFT compa. 2. There is additional signal abnormality in the more lateral LEFT compa which may be a prior infarct. Slightly atypical as there is a central hypointense sig nal. 3. Mild small vessel changes otherwise. 4. Mild cerebral and cerebellar atrophy. 5. Recommendation: Follow-up MRI brain with and without contrast in 6 weeks. T his will further evaluate the evolution of the lacunar infarct in the LEFT compa but also the adjacent signal abnormality in the far lateral LEFT compa.
== END 2025-07-27 06:48 | disposition home or self-care (01) ==
PROVIDERS: PCP Family Medicine; Visit Provider Student in an Organized Health Care Education/Training Program
DX: I63.81 Other cerebral infarction due to occlusion or stenosis of small artery (principal); I67.82 Cerebral ischemia; G93.89 Other specified disorders of brain
CPT/HCPCS: 70336; 70551